=== PATIENT | male | born 1955 | race Caucasian/White ===

== ENCOUNTER → 2016-08-05 | Outpatient (CLI) | payer OTHER ==
[~2016-08-05] MED LIST: ASPIRIN81 M2 PO; AVAPRO300 M1 PO; EFFEXOR75 M1 PO; EXCEDRIN MIGRA1 EACH PO; GABAPENTIN400 M2 PO; LO-DOSE ASPIRIN81 M1 PO; LOTENSIN20 MG PO; NAPROSYN-EC500 MG PO; NAPROSYN500 MG PO; NEXIUM PO; OMEPRAZOLE40 M1 PO; PERCOCET 7.5-31 EACH PO; POTASSIUM99 M2 PO; REQUIP0.5 MG PO; TOPAMAX25 MG; VITAMIN B122500 MCG; VITAMIN D250000 UNIT PO; XARELTO10 MG PO; ZETIA PO
--- NOTE | ~2016-08-05 | EKG ---
PATIENT: LUNA MARSHALL UNIT #: [id number] Ventricular Rate: 66 BPM Atrial Rate: 66 BPM P-R Interval: 150 ms QRS Duration: 106 ms Q-T Interval: 382 ms QTC Calculation(Bezet): 400 ms P [place]: 15 degrees Calculated R [place]: 37 degrees Calculated T [place]: 29 degrees Diagnosis Line: Normal sinus rhythm Diagnosis Line: Normal ECG Diagnosis Line: Diagnosis Line: Confirmed by LUIS MARTINEZ MD ([id number]) on 08/06/2016 Diagnosis Line: 9:14:50 PM INTERPRETING MD: JUAN SHEN
[2016-08-05 12:26] LABS: ALBUMIN SERUM 4.3 g/dL (3.5-5.0); BUN/CREATININE RATIO 15.45; CALCIUM SERUM 9.8 mg/dL (8.4-10.2); CREATININE SERUM 1.1 mg/dL (0.6-1.4); GLOM FILT RATE Estimated 73.1 mL/min (>60); PROTEIN TOTAL SERUM 7.1 g/dL (6.0-8.3)
== END | disposition home or self-care (01) ==
LOC: CAMB 09:50
PROVIDERS: Orthopaedic Surgery
DX: Z01.818 Encounter for other preprocedural examination (principal); M21.961 Unspecified acquired deformity of right lower leg
CPT/HCPCS: 36415; 80053; 93005

== ENCOUNTER 2016-08-19 12:19 | Inpatient (IN) | payer OTHER ==
--- NOTE | ~2016-08-19 | CR253 ---
[facility] A Service of [facility] RADIOLOGY TEXT RESULTS PATIENT: LUNA MARSHALL LOCATION: [facility] 456-01 : 56 UNIT #: [id number] AGE: [address]: Amalia Edwards MD SEX: M ORDER DR: [id number] [facility]. [place], [place] [address] [id number] MR#: [id number] Acc #: [id number] NAME: LUNA MARSHALL : 1955 SEX: M STUDY DATE/TIME: 08/19/2016 18:00 UNIT: [facility] ROOM: [facility] STUDY DESCRIPTION: CR Tibia and Fibula 2 Views Rt Attending Physician: Dl Edwards M.D. Referring Physician: Dl Edwards M.D. Ordering Physician: Dl Edwards M.D. Primary Care Physician: Generic Doctor Not In System MEDICAL IMAGING REPORT This report is preliminary unless electronic signature is present EXAM Right tibia-fibula, 4 views COMPARISON June 18, 2016 INDICATION 61-year-old male. Intraoperative evaluation for fibular and tibial osteotomy with intramedullary dakotah placement in the femur. FINDINGS A total of 4 images were obtained. Total fluoro time was 1 minute, 16 seconds. Intraoperative images demonstrate new osteotomies at the tibia and fibula with near anatomic alignment of these bones. There is new intramedullary dakotah of the femur with interlocking screws seen proximally and distally. No evidence of hardware complication is seen on this exam. IMPRESSION Intraoperative images demonstrate osteotomy of both the tibia and fibula with tibial intramedullary dakotah placement. No evidence of hardware complication. Bones appear grossly anatomically aligned. Formal postoperative radiographic evaluation recommended. Dictated by... Donta Mejía M.D. THIS IS AN ELECTRONICALLY VERIFIED REPORT Donta Mejía M.D. at 08/20/2016 11:22 AM Clarisse TD: 08/20/2016 08:22 JOB #: [id number] [facility] A Service of [facility] RADIOLOGY TEXT RESULTS PATIENT: LUNA MARSHALL LOCATION: [facility] 456-01 : 57 UNIT #: [id number] AGE: [address]: Amalia Edwards MD SEX: M ORDER DR: MEDICAL IMAGING REPORT Page 1 of 1 COPY
--- NOTE | ~2016-08-19 | HP ---
Unit #: [id number] #: [id number] Patient: LUNA MARSHALL [id number] [address] [address] [id number] MR#: [id number] NAME: LUNA MARSHALL ROOM: 456 Age: Sex: M Admission Date: 08/19/2016 : 1955 Attending Physician: Dl Edwards M.D. Referring Physician: Dl Edwards M.D. Primary Care Physician: Generic Doctor Not In System HISTORY AND PHYSICAL CHIEF COMPLAINT Right leg deformity and ankle arthritis. HISTORY OF PRESENT ILLNESS This 60-year-old male has a history of right tibial and ankle fracture in 1969 when he was in the . He was treated nonoperatively and had an external rotation deformity of the tibia. He continued active duty in the for 20 years and over the past several years has started developing increasing right ankle pain. He uses a Neoprene brace for support and takes Ibuprofen for pain. He does not smoke and he does not have diabetes. Clinically, the patient has an external rotation deformity of 30 degrees. Right ankle x-rays show joint space narrowing with subchondral sclerosis and osteophyte formation. The patient is therefore admitted for a derotational osteotomy of the tibia to correct his external rotation deformity over an intramedullary nail. Once this is healed, we will proceed with right total ankle arthroplasty. PAST MEDICAL HISTORY Hypertension, hypercholesterolemia, migraines, gastroesophageal reflux, depression. PAST SURGICAL HISTORY Cholecystectomy, inguinal hernia repair, bilateral knee replacements, vasectomy, tonsillectomy, wrist repair, several trigger finger releases, left carpal tunnel release. SOCIAL HISTORY The patient is a nonsmoker, nondrinker. ALLERGIES None. HOME MEDICATIONS 1. Gabapentin. 2. Effexor. 3. Nexium. 4. Aspirin. 5. Zetia. 6. Irbesartan. 7. Vitamin B12. 8. Vitamin D2. 9. Topiramate. PHYSICAL EXAMINATION Unit #: [id number] #: [id number] Patient: LUNA MARSHALL GENERAL APPEARANCE: A well-developed, well-nourished male in no acute distress. HEENT: Pharynx is clear. NECK: Supple without masses. HEART: Regular sinus rhythm without murmur or gallops. LUNGS: Clear. ABDOMEN: Soft and nontender. EXTREMITIES: Examination of the right foot shows flattening of the arch with slight varus of the heel. Right ankle dorsiflexion neutral, plantar flexion 20 degrees. Subtalar inversion 5 degrees, eversion 5 degrees. The patient has tenderness around the medial malleolus. Right foot progression angle is 45 degrees. Thigh-foot angle on the right is 45 degrees. On the left, it is 15 degrees. Hip motion is normal. Sensation is normal. Pulses are normal. Pulses are intact. DIAGNOSTIC STUDIES IMAGING: Standing x-rays of the right ankle show end-stage right ankle arthritis with joint space narrowing, subchondral sclerosis, osteophyte formation. Tibial films showed us the previous area of mid shaft tibia with increased callus and evidence of a healed fracture. There is no evidence of angular deformity of the mid shaft tibial fracture. Although the patient gives a history of bilateral knee replacement, he does not have a knee replacement on the right side. ADMITTING DIAGNOSES 1. Right tibial external rotation malunion. 2. Right ankle arthritis. PLAN The patient will undergo a two-stage procedure. The first stage will be a derotational osteotomy of the tibia to help correct the external rotation deformity. We will do this over an intramedullary nail. Once this is healed, we will proceed with right total ankle arthroplasty three to six months later. This procedure was described along with risks of bleeding, infection, nerve damage, need for further surgery in the future, prolonged recovery time, deep venous thrombosis, pulmonary embolism, anesthetic complication. He understands the above risks and agrees to proceed. Dictated by Jermaine Pleitez/karla TD: 08/19/2016 06:08 JOB #: [id number] Unit #: [id number] #: [id number] Patient: LUNA MARSHALL HISTORY AND PHYSICAL Page 1 of 1 X Amalia Edwards MD X HISTORY AND PHYSICAL
--- NOTE | ~2016-08-19 | OR ---
Unit #: [id number] #: [id number] Patient: LUNA MARSHALL [id number] [address] [place], [place] [address] [id number] MR#: [id number] NAME: LUNA MARSHALL ROOM: 456 Date of Procedure: 08/19/2016 Admission Date: 08/19/2016 Surgeon: Dl Edwards M.D. : 1955 Attending Physician: Dl Edwards M.D. Referring Physician: Dl dEwards M.D. OPERATIVE REPORT PREOPERATIVE DIAGNOSIS Right tibial external rotation malunion. POSTOPERATIVE DIAGNOSIS Right tibial external rotation malunion. PROCEDURE PERFORMED Right tibial and fibular derotational osteotomies with intramedullary nail ([id number]). ASSISTANTS [employer]. ANESTHESIA Popliteal saphenous block and general. INDICATIONS FOR SURGERY The patient is a 60-year-old male, who sustained a closed right tibial and fibular fractures of years ago, which was treated nonoperatively. He now has a 45-degree 5 foot progression angle with a 30-degree external rotation deformity compared to his left leg. Additionally, he has end-stage posttraumatic right ankle arthritis. He is therefore to undergo derotational osteotomy followed by ankle replacement on a staged basis. He has failed to respond to conservative care. DESCRIPTION OF PROCEDURE The patient was taken to the operating room following popliteal saphenous block. He was placed in supine position. General anesthetic was induced. The right leg was identified as the correct operative extremity during the time-out procedure. The IV antibiotic protocol was followed. The right and left leg were both prepped and draped in the usual sterile fashion. A pneumatic tourniquet was applied to the right thigh. The right leg was exsanguinated and the thigh tourniquet inflated to 300 mmHg. Under C-arm fluoroscopic control, an anterior longitudinal incision was made over the distal portion of the patellar tendon measuring 4 cm in length. The patellar tendon was split longitudinally. The [employer] intramedullary nail system was utilized. The cannulated awl was placed in a starting point and proper starting position was confirmed with C-arm fluoroscopy. The awl was then advanced into the tibial shaft. The guide pin was placed and the tibia was reamed up sequentially and 0.5 mm diameter increments to a 14.5 mm diameter. The guide pin was left in Unit #: [id number] #: [id number] Patient: LUNA MARSHALL, then was pulled proximal to the proposed osteotomy site. Under C-arm fluoroscopic control, the osteotomy site was determined to be in the distal third of the tibia at the site of the malunion. This was then well superior to the proposed ankle replacement site and would allow us to place the intramedullary nail and a position that would not impinge on the ankle replacement to be placed at a later date. A 4 cm incision was made over the medial distal tibial shaft. Subcutaneous tissue was divided. The bone was exposed subperiosteally. Hohmann retractors were placed. The microsagittal saw was used to cut the tibia. Care was taken to ensure that the blade was irrigated throughout the irrigation. In a similar fashion, a 4 cm incision was made over the fibular shaft at the same osteotomy level of the tibia. The peroneus longus tendon was retracted. The peroneus brevis muscle was split longitudinally and reflected subperiosteally off the fibula. Hohmann retractors were placed. The microsagittal saw was used to cut the fibula. The guide pin was then advanced across the osteotomy site and the leg was derotated. A [employer] T2 standard intramedullary nail measuring 13 mm in diameter and 34.5 cm in length was then placed over the guide pin and impacted into place. It was locked proximally with two 5 mm diameter screws and locked distally using a freehand technique with two 5 mm diameter screws, one screw was placed from anterior to posterior and second was placed from medial to lateral. Excellent fixation was achieved and following fixation, both legs showed equal rotation. Tourniquet was released with total tourniquet time of 75 minutes. The patellar tendon was closed with 2-0 Vicryl. Subcutaneous tissue was closed with 3-0 Vicryl. Skin was closed with 3-0 nylon horizontal mattress sutures. Xeroform gauze, dressing, sponges, Webril, Daryl wraps were applied. The patient was then transported to the recovery room in stable condition. ESTIMATED BLOOD LOSS Minimal. COMPLICATIONS None. SPECIMENS None. TOURNIQUET TIME 1 hour 15 minutes. Dictated by... Jermaine Pleitez/bal TD: 08/20/2016 05:52 JOB #: [id number] Unit #: [id number] #: [id number] Patient: LUNA MARSHALL OPERATIVE REPORT Page 1 of 1 X Amalia Edwards MD X PROCEDURE OPERATIVE NOTE
[~2016-08-19 12:19] MED LIST changes: -LO-DOSE ASPIRIN81 M1 PO; -NAPROSYN-EC500 MG PO; -OMEPRAZOLE40 M1 PO; -PERCOCET 7.5-31 EACH PO; -POTASSIUM99 M2 PO; -REQUIP0.5 MG PO; -XARELTO10 MG PO
[2016-08-20 03:50] LABS: HEMATOCRIT 40.7 % (38.0-50.0); HEMOGLOBIN 13.3 gm/dL (13.0-16.0)
[2016-08-20] MEDS ORDERED: XARELTO10 MG PO (11:40)
[2016-08-20] MEDS ORDERED: PERCOCET 7.5-31 EACH PO (11:43)
[2017-02-03] MEDS ORDERED: OMEPRAZOLE40 M1 PO (14:53)
[2017-02-03] MEDS ORDERED: REQUIP0.5 MG PO (14:55)
[2017-02-03] MEDS ORDERED: POTASSIUM99 M2 PO (14:55)
[2017-02-03] MEDS ORDERED: NAPROSYN-EC500 MG PO (14:56)
[2017-02-03] MEDS ORDERED: LO-DOSE ASPIRIN81 M1 PO (14:56)
== END 2016-08-20 12:43 | disposition home or self-care (01) | DRG 493 ==
LOC: CSUR 12:19 → CPACUOF 17:41 → C4B 20:36
PROVIDERS: Orthopaedic Surgery
PROC: 0QHG06Z Insertion of Intramedullary Internal Fixation Device into Right Tibia, Open Approach (ICD-10-PCS; principal; 2016-08-19 16:30)
PROC: 0QHJ06Z Insertion of Intramedullary Internal Fixation Device into Right Fibula, Open Approach (ICD-10-PCS; 2016-08-19 16:30)
DX: M19.171 Post-traumatic osteoarthritis, right ankle and foot (principal); S82.201A Unspecified fracture of shaft of right tibia, initial encounter for closed fracture; I10 Essential (primary) hypertension; K21.9 Gastro-esophageal reflux disease without esophagitis; K44.9 Diaphragmatic hernia without obstruction or gangrene; F32.9 Major depressive disorder, single episode, unspecified; Z79.82 Long term (current) use of aspirin; Z90.49 Acquired absence of other specified parts of digestive tract; Z96.653 Presence of artificial knee joint, bilateral; M25.771 Osteophyte, right ankle; M21.6X1 Other acquired deformities of right foot
CPT/HCPCS: 73590; 76001; 85014; 85018; 94760; 97110; 97116; 97161; C1713; J0690; J1100; J1170; J2250; J2270; J2405; J3010